=== PATIENT | female | born 1985 | race Caucasian/White ===

== ENCOUNTER 2017-06-28 12:09 | Outpatient (RCR) | payer OTHER, SELFPAY | END 2017-07-10 23:59 | LOC: NS 12:09 | DX: E88.81 Metabolic syndrome and other insulin resistance (principal); Z68.39 Body mass index [BMI] 39.0-39.9, adult; Z71.3 Dietary counseling and surveillance | CPT/HCPCS: 97802 ==

== ENCOUNTER 2017-07-19 09:53 | Outpatient (RCR) | payer OTHER, SELFPAY | END 2017-08-07 23:59 | LOC: NS 09:53 | DX: Z68.39 Body mass index [BMI] 39.0-39.9, adult (principal); E88.81 Metabolic syndrome and other insulin resistance; Z71.3 Dietary counseling and surveillance | CPT/HCPCS: 97803 ==

== ENCOUNTER 2017-08-16 08:53 | Outpatient (RCR) | payer OTHER, SELFPAY | END 2017-08-16 23:59 | LOC: NS 08:53 | DX: Z68.39 Body mass index [BMI] 39.0-39.9, adult (principal); E88.81 Metabolic syndrome and other insulin resistance; Z71.3 Dietary counseling and surveillance | CPT/HCPCS: 97803 ==

== ENCOUNTER → 2018-12-08 08:44 | Outpatient (CLI) | payer OTHER, SELFPAY ==
[2018-07-10 09:04] VITALS: BMI 38.7
--- NOTE | 2018-12-08 08:48 | CT_ITS ---
STUDY: CT ABDOMEN AND PELVIS WITH CONTRAST REASON FOR EXAM: Female, 33 years old. Right lateral abdominal pain for 4 to 5 months RADIATION DOSAGE (If Supplied By Facility): CTDIvol = ( 18.63 ) mGy, DLP = ( 1323.43 ) mGycm TECHNIQUE: Transaxial images were obtained from the dome of the diaphragm to the symphysis pubis with oral contrast. 100ml IV/Oral Isovue 300 was administered. Sagittal and coronal images were reconstructed. Individualized dose optimization techniques were used for this CT. COMPARISON: None. FINDINGS: The visualized lung bases are unremarkable. The visualized portions of the heart are within normal limits. Normal liver. Normal gallbladder and extrahepatic biliary system. Normal spleen. Normal pancreas. Normal bilateral adrenal glands. Normal right kidney. 17 mm left renal cyst. Normal visualized stomach. Normal small intestine. Normal colon. The appendix is visualized and appears normal. Normal abdominal aorta. Normal inferior vena cava. Normal retroperitoneum. Normal urinary bladder. Normal abdominal wall. Normal osseous structures. CT/Abdomen/Pelvis WITH Contrast IMPRESSION: No CT evidence of acute abdominopelvic pathology. No evidence of appendicitis, acute intestinal pathology, or acute obstructive uropathy. Electronically Signed: Jorge L Gutierrez MD at 9:41 EDT Tel , Service support ,
== END ==
DX: R10.9 Unspecified abdominal pain (principal)
CPT/HCPCS: 74177; Q9967

== ENCOUNTER → 2021-02-28 11:11 | Outpatient (CLI) | payer OTHER, SELFPAY ==
[2021-02-28 11:50] LABS: Erythrocyte Sedimentation Rate 12 mm/hr (0-30)
[2021-02-28 12:16] LABS: CRP 8.99 mg/L (0.0-3.0); Ferritin 51 ng/mL (8-252); Iron Binding Capacity,Total 331 ug/dL (250-450)
[2021-03-02 10:37] LABS: ANTINUCLEAR ANTIBODIES DIRECT Negative (Negative); Anti-Mitochondrial AB <20.0 Units (0.0-20.0)
[2021-03-07 04:29] LABS: Ceruloplasmin 25.9 mg/dL (19.0-39.0); Immunoglobulin G 1285 mg/dL (586-1602)
[2021-03-07 14:40] LABS: Anti-Smooth Muscle ABS 7 Units (0-19); Copper, Serum or Plasma 126 ug/dL (80-158); Transferrin 273 mg/dL (192-364)
== END ==
PROVIDERS: Referring Provider Internal Medicine Gastroenterology; Visit Provider Internal Medicine Gastroenterology
DX: K75.81 Nonalcoholic steatohepatitis (NASH) (principal)
CPT/HCPCS: 36415; 82390; 82525; 82728; 82784; 83516; 83550; 84466; 85652; 86038; 86140; 86225; 86235

== ENCOUNTER 2021-06-26 09:49 | Outpatient (CLI) | payer OTHER, SELFPAY | END 2021-06-26 23:59 | disposition short-term general hospital (02) | LOC: US 09:53 | PROVIDERS: Referring Provider Internal Medicine Gastroenterology; Visit Provider Internal Medicine Gastroenterology | DX: K76.0 Fatty (change of) liver, not elsewhere classified (principal) ==

== ENCOUNTER 2021-09-09 08:40 | Outpatient (CLI) | payer OTHER, SELFPAY ==
--- NOTE | 2021-09-09 08:53 | MRI_ITS ---
STUDY: MRI RIGHT ANKLE WITHOUT CONTRAST REASON FOR EXAM: Female, 35 years old. ENTHESOPATHY OF RIGHT FOOT/ANKLE TECHNIQUE: Standardized fat and water weighted pulse sequences were obtained in all 3 orthogonal planes. COMPARISON: None. FINDINGS: Normal subcutis adipose space. Normal posterior tibialis tendon. Normal flexor digitorum longus tendon. Normal flexor hallucis longus tendon. Normal peroneus longus and brevis tendons. Normal tibialis anterior tendon. Normal extensor hallucis longus tendon. Normal extensor digitorum longus tendons. Normal Achilles tendon and teno-osseous insertion. Normal plantar fascia. A small to moderate-sized plantar calcaneal spur is present. No marrow edema or edema of the plantar fascia is seen. No marrow edema or osteochondral defect or occult fracture is seen. Normal intrinsic muscles of the rearfoot. Normal distal tibiofibular syndesmotic ligamentous complex. There is scarring with thinning of the anterior talofibular ligament consistent with a remote sprain. Normal subtalar ligaments and sinus tarsi. Normal deltoid ligamentous complexes. Normal plantar calcaneonavicular (spring) ligament. Normal tibiotalar articulation. Normal talar dome. Normal subtalar articulations. Normal talonavicular articulation. Normal calcaneocuboid articulation. Normal navicular-cuneiform articulations. MRI/Lower Ext Joint Only (Routine) IMPRESSION: 1. Small to moderate-sized plantar calcaneal spur is present. No marrow edema or edema of the plantar fascia is seen 2. No marrow edema or osteochondral defect or occult fracture is seen. Electronically Signed: Jj Ceron MD at 10:55 EDT ,
== END 2021-09-09 23:59 | disposition home or self-care (01) ==
PROVIDERS: Visit Provider Podiatrist
DX: M77.51 Other enthesopathy of right foot and ankle (principal)
CPT/HCPCS: 73721